=== PATIENT | female | born 1970 | race Caucasian/White ===

== ENCOUNTER 2016-11-09 14:08 | Emergency (ER) | payer MEDICARE ==
[~2016-11-09] VITALS: Ht 157.5 cm; Wt 89.0 kg
[~2016-11-09 14:08] MED LIST: BUPR100T11 PO; CETI10TA24 PO; CLON1POW5 PO; DICL75TA2 PO; DICY20TA3 PO; DOXE25CA PO; DULO60CA7 PO; ESOM40CA PO; ESTR0.5T PO; ESTROVEN REGU400 MCG PO; FLAX100016 PO; GABA400C PO; GLUC1CAP13 PO; HYOS0.1261 SL; LEVO88TA4 PO; LOVA20TA2 PO; MELA5TAB3 PO; MIRT30TA6 PO; PRIMROSE OIL PO; VALE100C PO
[2016-11-09] MEDS ORDERED: SODIUM CHLORIDE 0.9% 1,000ML IVBOLUS ONE (15:00)
[2016-11-09 15:37] LABS: BLOOD UREA NITROGEN 9 mg/dL (7-18)
[2016-11-09 15:40] LABS: ASPARTATE AMINO TRANSFERASE 22 U/L (15-37)
[2016-11-09 15:49] LABS: HEMOGLOBIN 13.3 g/dL (11.7-16.4)
[2016-11-09] MEDS ORDERED: MAALOX/HYOSCYAMINE/LIDOCAINE 45 ML BOTTLE PO ONE (17:00)
[2016-11-09] MEDS ORDERED: FAMOTIDINE 20 MG/2 ML IVP ONE (17:00)
[2016-11-09] MEDS ORDERED: ONDANSETRON 2MG/ML, 2ML IVPush ONE (17:00)
[2016-11-09] MEDS ORDERED: FENTANYL PF 100 MCG/2ML IV ONE (17:00)
[2016-11-09] MEDS ORDERED: MAALOX/HYOSCYAMINE/LIDOCAINE 45 ML BOTTLE ONE (18:05)
[2016-11-09] MEDS ORDERED: ONDANSETRON 2MG/ML, 2ML ONE (18:05)
[2016-11-09] MEDS ORDERED: FAMOTIDINE 20 MG/2 ML ONE (18:05)
[2016-11-09] MEDS ORDERED: FENTANYL PF 100 MCG/2ML ONE (18:05)
[2016-11-09] MEDS ORDERED: OMNIPAQUE 350 MG/ML, 100ML BOTTLE ONE (18:08)
[2016-11-09 18:25] VITALS: BP 124/84
== END 2016-11-09 19:12 | disposition home or self-care (01) ==
LOC: ED 18:40
DX: R10.84 Generalized abdominal pain (principal); R11.2 Nausea with vomiting, unspecified; E03.9 Hypothyroidism, unspecified; Z90.49 Acquired absence of other specified parts of digestive tract; Z90.710 Acquired absence of both cervix and uterus
CPT/HCPCS: 36415; 74177; 80053; 81003; 83690; 85025; 96374; 96375; 99285; J2405; J3010; Q9967; S0028